=== PATIENT | female | born 1960 | race Caucasian/White ===

== ENCOUNTER 2024-09-07 13:32 | Outpatient (CLI) | payer MEDICAID | END 2024-09-07 13:33 | disposition home or self-care (01) | LOC: CSHWCC 13:32 | PROVIDERS: ATTEND Nurse Practitioner Family | DX: E11.622 Type 2 diabetes mellitus with other skin ulcer (principal); L97.812 Non-pressure chronic ulcer of other part of right lower leg with fat layer exposed; Z72.0 Tobacco use | CPT/HCPCS: 97597; 99213; G0463 ==

== ENCOUNTER 2024-09-14 14:04 | Outpatient (CLI) | payer MEDICAID | END 2024-09-14 14:05 | disposition home or self-care (01) | LOC: CSHWCC 14:04 | PROVIDERS: ATTEND Nurse Practitioner Family | DX: E11.622 Type 2 diabetes mellitus with other skin ulcer (principal); L97.812 Non-pressure chronic ulcer of other part of right lower leg with fat layer exposed; Z72.0 Tobacco use | CPT/HCPCS: 99212; G0463 ==